=== PATIENT | female | born 1950 | race Caucasian/White ===

== ENCOUNTER 2022-06-19 06:01 | Day surgery (SDC) | payer MEDICARE, OTHER ==
[~2022-06-19] VITALS: Ht 154.9 cm; Wt 86.4 kg
[~2022-06-19 06:01] MED LIST: ALBU8HFA IH; ATOR20TA65 PO; CLOP-31 PO; DOXY-469 PO; FERR-89 PO; FLUT16SP NASAL; GABA-1216 PO; LIDO700A30 TD; LISI-894 PO; MONT-35 PO; NPH,100V SQ; PRED-729 PO; SODIUM CHLORIDE 0.9% 1,000 ML IV ONE
[2022-06-19] MEDS ORDERED: BENZOCAINE 20% 50 MCG/SPRAY 57 GM TP ONE (06:02)
[2022-06-19] MEDS ORDERED: LIDOCAINE 4% 50 ML SOLUTION TP ONE (06:02)
[2022-06-19] MEDS ORDERED: LIDOCAINE 2% 11 ML JELLY TP ONE (06:02)
[2022-06-19 06:37] LABS: COVID AG,FIA SOURCE NASAL SWAB
[2022-06-19] MEDS ORDERED: SODIUM CHLORIDE 0.9% 1,000 ML ONE (07:27)
[2022-06-19] MEDS ORDERED: MIDAZOLAM HCL 2 MG/2 ML VIAL ONE (08:06)
[2022-06-19] MEDS ORDERED: NALOXONE HCL 0.4 MG/ML VIAL ONE (08:07)
[2022-06-19] MEDS ORDERED: DiphenhydrAMINE HCL 50 MG/ML VIAL ONE (08:07)
[2022-06-19] MEDS ORDERED: FLUMAZENIL 0.1 MG/ML 5 ML VIAL IVP ONE (08:07)
[2022-06-19] MEDS ORDERED: SODIUM TETRADECYL SULFATE 3% 60 MG/2 ML VIAL IVP ONE (08:07)
[2022-06-19] MEDS ORDERED: EPINEPHrine 1:10,000 [1 MG/10 ML] SYRINGE ONE (08:07)
[2022-06-19] MEDS ORDERED: FentaNYL CITRATE PF 100 MCG/2 ML VIAL ONE (08:07)
[2022-06-19] MEDS ORDERED: ATROPINE SULFATE 0.1 MG/ML 10 ML SYRINGE IVP ONE (08:08)
[2022-06-19] MEDS ORDERED: MethylPREDNISolone SOD SUCC 125 MG/2 ML VIAL IVP ONE (09:30)
== END 2022-06-19 10:25 | disposition home or self-care (01) ==
LOC: SURGERY 06:01
PROVIDERS: ATTEND Internal Medicine Critical Care Medicine
DX: J38.4 Edema of larynx (principal); B37.0 Candidal stomatitis; M19.90 Unspecified osteoarthritis, unspecified site; Z20.822 Contact with and (suspected) exposure to COVID-19; Z87.01 Personal history of pneumonia (recurrent); I10 Essential (primary) hypertension; Z79.899 Other long term (current) drug therapy
CPT/HCPCS: 31623; 87101; 87220; 87070; 31624; 71045; 87015; 87426; 87206; J3010; J2250; J2930; Q9967; J7030; C9803; J0171; J0461; J1200; J2310; J3490; Z7610

== ENCOUNTER 2024-10-06 06:25 | Day surgery (SDC) | payer MEDICARE, OTHER ==
[~2024-10-06] VITALS: Ht 154.9 cm; Wt 95.5 kg
[~2024-10-06 06:25] MED LIST changes: +ALBU18HF12 IH; -ALBU8HFA IH; +DOXY-466 PO; -DOXY-469 PO; -SODIUM CHLORIDE 0.9% 1,000 ML IV ONE
[2024-10-06] MEDS ORDERED: SODIUM CHLORIDE 0.9% 1,000 ML ONE (06:52)
[2024-10-06] MEDS: SODIUM CHLORIDE 0.9% 1,000 ML IV ONE (07:35)
[2024-10-06 07:50] LABS: GLUCOMETER DEV NAME(LOC) SDS.; GLUCOSE,POINT OF CARE 200 MG/DL (70-110)
[2024-10-06] MEDS ORDERED: MIDAZOLAM HCL 2 MG/2 ML VIAL ONE (08:01)
[2024-10-06] MEDS ORDERED: FentaNYL CITRATE PF 100 MCG/2 ML VIAL ONE (08:01)
[2024-10-06 08:40] VITALS: PULSE 71; PULSE 91; RESP 18; O2SAT 100
[2024-10-06] MEDS ORDERED: MethylPREDNISolone SOD SUCC 125 MG/2 ML VIAL ONE (09:31)
[2024-10-06] MEDS: MethylPREDNISolone SOD SUCC 125 MG/2 ML VIAL IVP ONE (09:35)
[2024-10-06] MEDS ORDERED: LEVALBUTEROL 1.25 MG/0.5 ML NEB SOLUTION NEB ONE (12:00)
[2024-10-06] MEDS ORDERED: LIDOCAINE 4% 50 ML SOLUTION ONE (12:00)
[2024-10-06] MEDS ORDERED: BENZOCAINE 20% 50 MCG/SPRAY 57 GM ONE (12:00)
[2024-10-06] MEDS ORDERED: LIDOCAINE 2% 11 ML JELLY ONE (12:00)
== END 2024-10-06 12:55 | disposition home or self-care (01) ==
LOC: SURGERY 06:25
PROVIDERS: ATTEND Internal Medicine Critical Care Medicine
DX: R05.3 Chronic cough (principal); R04.2 Hemoptysis; J38.4 Edema of larynx; I10 Essential (primary) hypertension; B37.0 Candidal stomatitis; M19.90 Unspecified osteoarthritis, unspecified site; Z86.73 Personal history of transient ischemic attack (TIA), and cerebral infarction without residual deficits; E11.9 Type 2 diabetes mellitus without complications; Z87.891 Personal history of nicotine dependence; Z20.822 Contact with and (suspected) exposure to COVID-19; Z87.01 Personal history of pneumonia (recurrent)
CPT/HCPCS: 31623; 82962; 87206; 87101; 87220; 87070; 88108; 31624; 71045; 87015; J3010; J2250; J2919; J7030; Z7610